=== PATIENT | male | born 1945 | race Caucasian/White ===

== ENCOUNTER 2018-01-17 19:29 | Emergency (ER) | payer OTHER ==
[~2018-01-17] VITALS: Ht 170.2 cm; Wt 87.0 kg
[2018-01-17 19:31] VITALS: BP 184/80; PULSE 77; RESP 14; TEMP 98.8; O2SAT 97
== END 2018-01-17 20:36 | disposition left against medical advice (07) ==
LOC: NED 19:29
DX: Z98.890 Other specified postprocedural states (principal); Z53.21 Procedure and treatment not carried out due to patient leaving prior to being seen by health care provider
CPT/HCPCS: 99281